=== PATIENT | male | born 1955 | race Hispanic/Latino ===

== ENCOUNTER → 2018-02-04 | Day surgery (SDC) | payer OTHER ==
[~2018-02-04] MED LIST: FENTANYL CITRATE/PF 100MCG/2 ML INJ ONE; LEVOTHYROXINE100 MC1 IV; LISINOPRIL2.5 MG PO; MIDAZOLAM HCL 2 MG/2 ML VIAL ONE; OR PHACO EYE KIT ONE; PREOP PHACO EYE KIT ONE; XIGDUO PO
== END | disposition home or self-care (01) ==
LOC: OR 10:58
PROVIDERS: ATTEND Ophthalmology
DX: H25.12 Age-related nuclear cataract, left eye (principal); E11.9 Type 2 diabetes mellitus without complications; E03.9 Hypothyroidism, unspecified; I10 Essential (primary) hypertension; E78.5 Hyperlipidemia, unspecified; I44.0 Atrioventricular block, first degree; I45.10 Unspecified right bundle-branch block; Z01.810 Encounter for preprocedural cardiovascular examination
CPT/HCPCS: 36415; 66984; 82948; 93005; J2250

== ENCOUNTER → 2018-02-18 | Day surgery (SDC) | payer OTHER | END | disposition home or self-care (01) | LOC: OR 11:32 | PROVIDERS: ATTEND Ophthalmology | DX: H25.11 Age-related nuclear cataract, right eye (principal); E11.65 Type 2 diabetes mellitus with hyperglycemia; Z91.14 Patient's other noncompliance with medication regimen; I10 Essential (primary) hypertension; E03.9 Hypothyroidism, unspecified; I44.0 Atrioventricular block, first degree | CPT/HCPCS: 36415; 66984; 82948; J2250; V2632 ==